=== PATIENT | female | born 1980 | race Caucasian/White ===

== ENCOUNTER → 2020-03-12 08:56 | Outpatient (CLI) | payer OTHER, SELFPAY ==
[2020-03-13 09:37] LABS: COVID19 Sendout Not Detected (Not Detect)
== END ==
PROVIDERS: PCP Physician Assistant Medical; Visit Provider Student in an Organized Health Care Education/Training Program
DX: Z01.812 Encounter for preprocedural laboratory examination (principal)
CPT/HCPCS: 87635

== ENCOUNTER → 2020-06-28 10:38 | Outpatient (CLI) | payer OTHER, SELFPAY ==
[2020-06-29 01:50] LABS: COVID19 Sendout Not Detected (Not Detect)
== END ==
PROVIDERS: PCP Physician Assistant Medical; Visit Provider Physician Assistant
DX: Z11.59 Encounter for screening for other viral diseases (principal); J02.9 Acute pharyngitis, unspecified
CPT/HCPCS: 87070; 87077; 87147; 87635

== ENCOUNTER 2020-08-25 22:13 | Emergency (ER) | payer OTHER, SELFPAY ==
[2020-08-25 22:23] VITALS: BP 164/77; PULSE 100; RESP 16; TEMP 37.1; O2SAT 96; BMI 37.8
[2020-08-25 22:24] VITALS: PULSE 86; O2SAT 99
[2020-08-25 22:30] VITALS: BP 147/69; PULSE 79; O2SAT 98
[2020-08-25 22:39] VITALS: BP 138/65; PULSE 76; O2SAT 99
[2020-08-25 22:40] LABS: Add Manual Diff / Slide Review NO; Basophils Absolute Auto 0 /uL (0-100); Basophils Percent Auto 0.3 % (0-2); Eosinophils Absolute Auto 200 /uL (0-450); Hematocrit 39.9 % (36-46); Hemoglobin 13.2 g/dL (12.0-16.0); Lymphocytes Absolute Auto 2300 /uL (1100-4500); Mean Corpuscular HGB Conc 33.2 % (30-36); Mean Corpuscular Hemoglobin 27.5 PG (26-34); Monocytes Absolute Auto 400 /uL (0-900); Neutrophils Absolute Auto 5200 /uL (1500-7000); Neutrophils Percent Auto 64.7 % (50-75); Platelet Count 260 X10^3/uL (150-400); Red Cell Distribution Width 13.8 % (11.6-14.8)
[2020-08-25 22:42] LABS: Prothrombin Time 11.3 SECONDS (10.1-12.7)
[2020-08-25 22:45] LABS: PTT Partial Thromboplastin Tim 31 SECONDS (26.4-36.2)
[2020-08-25 22:46] LABS: Alanine Aminotransferase 15 IU/L (<35); Albumin 4.2 g/dL (3.5-5.0); Albumin Globulin Ratio 1.3 (1.0-2.8); Alkaline Phosphatase 70 U/L (38-126); Aspartate Aminotransferase 17 IU/L (14-36); BUN Creatinine Ratio 17.8 (6-22); Bilirubin Total 0.3 mg/dL (0.2-1.3); Blood Urea Nitrogen 13 mg/dL (7-17); Calcium 8.7 mg/dL (8.4-10.2); Carbon Dioxide 32 mmol/L (22-32); Chloride 101 mmol/L (98-107); Estimated Glomerular Filt Rate > 60.0 mL/min (>60); Globulin 3.3 g/dL (1.7-4.1); Glucose 121 mg/dL (70-100); HEMOLYSIS < 15 (0-50); Lipase 151 U/L (23-300); Potassium 3.5 mmol/L (3.4-5.1); Sodium 137 mmol/L (137-145); Total Protein 7.5 g/dL (6.3-8.2)
[2020-08-25 22:54] LABS: Pregnancy Test Serum,Qual Negative (Negative)
--- NOTE | 2020-08-25 22:59 | DI.CT.S_ITS ---
PROCEDURE: CT ABDOMEN PELVIS W CON INDICATIONS: rlq pain TECHNIQUE: After the administration of intravenous contrast, 5 mm thick sections acquired from the diaphragm to the symphysis. 5 mm coronal and sagittal reformats were acquired. For radiation dose reduction, the following was used: automated exposure control, adjustment of mA and/or kV according to patient size. COMPARISON: [facility], [place], OB COMPLETE 14WKS OR MORE, 03/15/2015, 16:15. [facility], [place], OB COMPLETE LESS THAN 14 WKS, 01/27/2017, 13:10. [facility], [place], OB COMPLETE LESS THAN 14 WKS, 03/02/2017, 15:56. [facility], [place], OB COMPLETE 14WKS OR MORE, 05/08/2017, 8:16. FINDINGS: Image quality: Excellent. ABDOMEN: Lung bases: A subtle 4 mm pulmonary nodule is present adjacent to the cardiac margin at the lingular base (series 3/image 1). Lung bases are otherwise clear. Heart size is normal. Solid organs: Liver is normal in size and enhancement. Gallbladder is unremarkable . Biliary system is non dilated. Pancreas enhances normally. Spleen is normal in size and enhancement. No adrenal nodules. Kidneys demonstrate normal size and enhancement, without hydronephrosis. A nonobstructing 4 mm calculus is present at the lower pole of the right kidney. Peritoneum and bowel: Bowel loops demonstrate normal wall thickness and caliber. The appendix is thin walled. No free fluid or air. Nodes and vessels: No retroperitoneal or mesenteric adenopathy by size criteria. Aorta and inferior vena cava are normal in size. Miscellaneous: No ventral hernias. PELVIS: Genitourinary: Bladder wall thickness is normal. The uterus and the left ovary have a normal appearance. There is a 3.6 x 2.7 cm right ovarian mass which contains a 1.2 cm region of macroscopic fat. Additionally, a punctate calcification is noted along the anterior aspect of this ovarian. Miscellaneous: No inguinal hernias or adenopathy. Bones: No suspicious bony lesions. No vertebral body compression fractures. IMPRESSION: 1. No acute intra-abdominal findings. Normal appendix. 2. Findings suspicious for a right ovarian dermoid. Pelvic ultrasound could be used to further characterize this finding. Of note, there are multiple prior obstetric ultrasounds documented; however these do not appear to contain images of the ovaries for comparison. 3. Nonobstructive right nephrolithiasis. These findings are concordant with the overnight interpretation. Dictated by: Stacey Fung M.D. on 08/26/2020 at 7:36 Approved by: Stacey Fung M.D. on 08/26/2020 at 7:42
[2020-08-25 23:00] VITALS: BP 143/77; PULSE 72; RESP 22; O2SAT 99
--- NOTE | 2020-08-25 23:09 | ED_ITS ---
HPI - Abdominal Pain General Chief Complaint: Abdominal Pain Stated Complaint: abdominal pain Time Seen by Provider: 08/25/20 22:36 Source: patient and family Mode of arrival: Ambulatory Limitations: no limitations and language barrier History of Present Illness HPI narrative: Patient is a 40-year-old female who presents with right lower quadrant pain which started suddenly after she was trying have a bowel movement. She was feeling well earlier in the day no fever or pain. The she then felt immediate right lower quadrant pain after trying to have bowel movement and she is also having right flank pain as well. As she is noted to have some blood urine 3 no prior history of kidney stone. She denies any fever chills or nausea. She took Tylenol prior to arrival and has not helped with the pain. She says she takes Tylenol every night before bed for the arthritis in her back MD complaint: abdominal pain and flank pain Onset (ago): hour(s) Pain Consistency: constant Location: RLQ Severity: moderate Quality: cramping and stabbing Radiation: none Migration to: no migration Relieving factors: nothing Exacerbating factors: nothing Related Data Home Medications Medication Instructions Recorded Confirmed sertraline 100 mg tablet 100 mg PO DAILY 06/28/20 06/28/20 Allergies Allergy/AdvReac Type Severity Reaction Status Date / Time naproxen Allergy Mild VOMITING, Verified 06/28/20 10:17 PATIENT STATES SHE CAN TAKE IBUPROFEN Review of Systems Review of Systems Narrative: GENERAL: Denies chills, fatigue, malaise, fever, sweats, travel HEENT: Denies sinus pain, ear pain, sore throat, difficulty swallowing, neck pain RESPIRATORY: Denies dyspnea, cough, wheezing, hemoptysis, sputum. CARDIOVASCULAR: Denies chest pain, palpitations, orthopnea, edema GASTROINTESTINAL: See HPI : Denies dysuria, frequency, incontinence, hematuria, urinary retention, flank pain. MUSCULOSKELETAL: Denies weakness, joint pain, or bony pain SKIN: No rash, no erythema, no pruritus NEUROLOGIC: Denies weakness, dizziness, headache, numbness, change in speech, co nfusion PSYCHIATRIC: No concerning psychosocial issues. 12 point review of systems is negative except for those stated above and HPI Patient History Social History Smoking Status: Never smoker Smoking Status: Never smoker Substance Use Type: does not use Exam Initial Vital Signs Initial Vital Signs: Vital Signs Temperature 98.7 F 08/25/20 22:23 Pulse Rate 100 H 08/25/20 22:23 Respiratory Rate 16 08/25/20 22:23 Blood Pressure 164/77 H 08/25/20 22:23 Pulse Oximetry 96 08/25/20 22:23 GENERAL: Well-appearing, well-nourished and in no acute distress. HEENT: Head atraumatic,EOMI, pupils reactive, face symmetric, moist mucous membranes CARDIOVASCULAR: Regular rate and rhythm without murmurs, rubs or gallops. RESPIRATORY: Breath sounds equal bilaterally, no wheezes rales or rhonchi. ABDOMEN: Soft, mild right lower quadrant pain : Mild right flank pain no guarding no rebound EXTREMITIES: Normal range of motion, no clubbing or edema. Neurovascularly intact NEUROLOGICAL: Alert and oriented x4.Normal gait and speech. SKIN: Warm, dry, no laceration, no petechiae, no rashes or lesions. Course Orders Ordered: ED Orders 08/25/20 22:30 Complete Blood Count AUTO DIFF Stat Comprehensive Metabolic Panel Stat Lipase Stat Partial Thromboplastin Time Stat Test Serum,Qual Stat Prothrombin Time INR Stat 08/25/20 22:59 CT abdomen pelvis w con Stat Discontinued Medications Acetaminophen (Acetaminophen 325 Mg Tablet) 975 mg PO NOW ONE Stop: 08/26/20 00:23 Last Admin: 08/26/20 00:28 Dose: 975 mg Documented by: CHERRY Vital Signs Vital signs: Vital Signs - 8 hr 08/25/20 22:23 08/25/20 22:24 08/25/20 22:30 Temperature 98.7 F Pulse Rate 100 H 86 79 Respiratory Rate 16 Blood Pressure 164/77 H 147/69 H Pulse Oximetry 96 99 98 08/25/20 22:39 08/25/20 23:00 08/25/20 23:30 Temperature Pulse Rate 76 72 67 Respiratory Rate 22 20 Blood Pressure 138/65 143/77 H Pulse Oximetry 99 99 97 08/26/20 00:00 Temperature Pulse Rate 66 Respiratory Rate 19 Blood Pressure 144/78 H Pulse Oximetry 98 MDM - Abdominal Pain Lab Data Result diagrams: 08/25/20 22:30 08/25/20 22:30 Labs: Lab Results 12/26/20 12/26/20 12/26/20 Range/Units 22:30 22:30 22:30 WBC 8.0 (4.5-11.0) X10^3/uL RBC 4.80 (4.0-5.2) X10^6/uL Hgb 13.2 (12.0-16.0) g/dL Hct 39.9 (36-46) % MCV 83.0 (80-100) fL MCH 27.5 (26-34) PG MCHC 33.2 (30-36) % RDW 13.8 (11.6-14.8) % Plt Count 260 (150-400) X10^3/uL Neut % (Auto) 64.7 (50-75) % Lymph % (Auto) 28.0 (25-40) % [place] % (Auto) 5.0 (3-14) % Eos % (Auto) 2.0 (2-4) % Baso % (Auto) 0.3 (0-2) % Neut # (Auto) 5200 (8624-9837) /uL Lymph # (Auto) 2300 (4459-1690) /uL [place] # (Auto) 400 (0-900) /uL Eos # (Auto) 200 (0-450) /uL Baso # (Auto) 0 (0-100) /uL PT 11.3 (10.1-12.7) SECONDS INR 1.0 (0.9-1.3) APTT 31 (26.4-36.2) SECONDS Sodium 137 (137-145) mmol/L Potassium 3.5 (3.4-5.1) mmol/L Chloride 101 (98-107) mmol/L Carbon Dioxide 32 (22-32) mmol/L BUN 13 (7-17) mg/dL Creatinine 0.73 (0.52-1.04) mg/dL Estimated GFR > 60.0 (>60) mL/min BUN/Creatinine Ratio 17.8 (6-22) Glucose 121 H (70-100) mg/dL Calcium 8.7 (8.4-10.2) mg/dL Total Bilirubin 0.3 (0.2-1.3) mg/dL AST 17 (14-36) IU/L ALT 15 (<35) IU/L Alkaline Phosphatase 70 (38-126) U/L Total Protein 7.5 (6.3-8.2) g/dL Albumin 4.2 (3.5-5.0) g/dL Globulin 3.3 (1.7-4.1) g/dL Albumin/Globulin Ratio 1.3 (1.0-2.8) Lipase 151 (23-300) U/L Serum , Qual (Negative) 08/25/20 Range/Units 22:30 WBC (4.5-11.0) X10^3/uL RBC (4.0-5.2) X10^6/uL Hgb (12.0-16.0) g/dL Hct (36-46) % MCV (80-100) fL MCH (26-34) PG MCHC (30-36) % RDW (11.6-14.8) % Plt Count (150-400) X10^3/uL Neut % (Auto) (50-75) % Lymph % (Auto) (25-40) % [place] % (Auto) (3-14) % Eos % (Auto) (2-4) % Baso % (Auto) (0-2) % Neut # (Auto) (3936-0567) /uL Lymph # (Auto) (4890-6855) /uL [place] # (Auto) (0-900) /uL Eos # (Auto) (0-450) /uL Baso # (Auto) (0-100) /uL PT (10.1-12.7) SECONDS INR (0.9-1.3) APTT (26.4-36.2) SECONDS Sodium (137-145) mmol/L Potassium (3.4-5.1) mmol/L Chloride (98-107) mmol/L Carbon Dioxide (22-32) mmol/L BUN (7-17) mg/dL Creatinine (0.52-1.04) mg/dL Estimated GFR (>60) mL/min BUN/Creatinine Ratio (6-22) Glucose (70-100) mg/dL Calcium (8.4-10.2) mg/dL Total Bilirubin (0.2-1.3) mg/dL AST (14-36) IU/L ALT (<35) IU/L Alkaline Phosphatase (38-126) U/L Total Protein (6.3-8.2) g/dL Albumin (3.5-5.0) g/dL Globulin (1.7-4.1) g/dL Albumin/Globulin Ratio (1.0-2.8) Lipase (23-300) U/L Serum , Qual Negative (Negative) Point of care testing: Point of Care Testing Test Results Negative Urine Dip Bedside Urine Glucose Negative Bedside Urine Bilirubin + 1 Bedside Urine Ketone +/- 5 Urine Specific [place] 1.025 Bedside Urine Occult Blood +/- Bedside Urine pH 6.0 Bedside Urine Protein +/- 15 Bedside Urine Urobilinogen - Negative Bedside Urine Nitrite - Negative Bedside Urine Leukocytes - Negative Esterase Imaging Data CT scan - abdomen/pelvis: Radiologist's Impression: Preliminary report 1.4 cm lesion on the right adnexa consistent with dermoid MDM Narrative Medical decision making narrative: Patient started having right-sided pain after straining for a bowel movement. CT does show a dermoid however this is unlikely the cause of her pain. Pain seems to be more musculoskeletal. She is unable to take NSAIDs they cause her vomiting. She takes Tylenol. Tylenol was helping but now seems to have worn off. She does have a primary care provider for she follow up with them in regards to the dermoid. Discharge Plan Departure Patient Disposition: Home Clinical Impression: Dermoid cyst Abdominal wall strain Qualifiers: Encounter type: initial encounter Qualified Code(s): S39.011A - Strain of muscle, fascia and tendon of abdomen, initial encounter Instructions: DI for Abdominal Muscle Strain Activity Restrictions/Additional Instructions: *You have been diagnosed with abdominal wall strain and dermoid cyst on right *What to do: He likely pulled or strained abdominal wall muscle. Recommend heating pack or ice. Please follow-up with your primary care provider in regard to the dermoid cyst found near your right ovary *Continue to take medications as directed Tylenol 1000 mg every 6 hours if needed for pain *Follow up with your primary care provider in 2-3 days *Return to ER if you should have increasing pain, fever, persistent vomiting [or] any new, worsening or concerning symptoms Prescriptions: No Action sertraline 100 mg tablet 100 mg PO DAILY RF: 0 Referrals: Ning Eng PA-C [Primary Care Provider] -
[2020-08-25 23:30] VITALS: PULSE 67; RESP 20; O2SAT 97
[2020-08-26] VITALS: BP 144/78; PULSE 66; RESP 19; O2SAT 98
[2020-08-26] MEDS: ACETAMINOPHEN 325 MG TABLET 975 MG PO (00:28)
== END 2020-08-26 00:36 | disposition home or self-care (01) ==
PROVIDERS: Emergency Provider Emergency Medicine; PCP Physician Assistant Medical
DX: S39.011A Strain of muscle, fascia and tendon of abdomen, initial encounter (principal); D36.9 Benign neoplasm, unspecified site
CPT/HCPCS: 36415; 74177; 80053; 81003; 81025; 83690; 84703; 85025; 85610; 85730; 99283; 99284

== ENCOUNTER → 2020-10-03 11:52 | Outpatient (CLI) | payer OTHER, SELFPAY ==
[2020-10-03 12:21] LABS: COVID19 -Nasal RAPID Negative (Negative)
== END ==
PROVIDERS: PCP Physician Assistant Medical; Visit Provider Specialist
DX: Z01.812 Encounter for preprocedural laboratory examination (principal); Z20.822 Contact with and (suspected) exposure to COVID-19
CPT/HCPCS: 87635

== ENCOUNTER 2020-10-04 10:32 | Day surgery (SDC) | payer OTHER, SELFPAY ==
[2020-10-04] VITALS (11 sets, daily range): BP systolic 113–153; BP diastolic 51–92; PULSE 60–89; RESP 12–18; TEMP 36.6–37; O2SAT 83–100; BMI 39.4
--- NOTE | 2020-10-04 | PATH_ITS ---
[facility] Accession Number: [id number] . 01 Material submitted: . OVARY/FALLOPIAN TUBE - RIGHT OVARY AND FALLOPIAN TUBE . 02 Diagnosis: Right Ovary and Fallopian Tube, Right Salpingo-oophorectomy: Benign ovarian mature cystic teratoma / benign dermoid cyst involves the right ovary and is adherent to the fallopian tube. Disrupted measurement is approximately 2 cm; tissue disruption precludes definite measurement of the dermoid cyst. Background of ovarian stromal thecosis and scattered, benign cortical cysts. Fallopian tube demonstrates adhesions to ovary associated with the dermoid cyst; negative for epithelial atypia or malignancy. [facility] 10/12/2020 1423 Local . 02 Electronically signed: . Juliana Hart MD, Pathologist NPI- [id number] . 01 Gross description: . The specimen is received in formalin, labeled right ovary and fallopian tube, and consists of a 3.2 x 2.5 x 2.0 cm ovary with a armstrong-pink smooth to cerebriform external surface and a 2.0 x 1.5 cm area of disruption. Sectioning reveals a armstrong ovarian stroma with multiple armstrong-pink, smooth-walled, serous-filled cysts ranging from 0.1 cm to 0.6 cm. No papillary excrescences are identified. The attached fallopian tube measures 3.2 cm in length by 0.9 cm in diameter and displays a pink-purple, smooth serosa. Sectioning reveals a armstrong mucosa and stellate lumen measuring 0.2 cm in diameter. Also received are multiple armstrong to armstrong-pink fragments of soft tissue measuring 3.0 x 2.5 x 1.0 cm in aggregate. Glove Maker sections are submitted. A1-A2: Glove Maker ovary, to include area of disruption. A3: Fallopian tube, outbound sales representative cross-sections, margin (blue), and bisected fimbria. A4: Glove Maker additional tissue fragments. (EA:[id number]) A5-A12: Remainder of ovary. (EA:[id number]) /FRR 10/12/2020 1423 Local . 02 Pathologist provided ICD-10: R10.31, D27.0 . 02 CPT . 690153 Performed at: 01 [facility] [address] [address], [place], [place] [id number] MD Maicol Bey MD Phone: [phone] Performed at: [facility] [address] [address] [place], [place] [id number] MD Sarah Edward MD Phone: [phone]
[2020-10-04] MEDS: LACTATED RINGERS 1,000 ML 100 ML IV (11:30)
--- NOTE | 2020-10-04 12:00 | PM.PREOP ---
Pre-operative Note COVID-19 COVID-19 status: Negative Result date/Date tested (Pos, Neg/Pending): 10/03/20 Interval Note History & Physical reviewed/Exam performed by Physician: Yes Changes to H&P: No
--- NOTE | 2020-10-04 12:29 | SUR.OPER ---
Lithotomy on padded OR bed, head on pillow, arms secured on padded arm boards at <90 degrees abduction. Legs secured in padded yellow fins stirrups.
[2020-10-04] MEDS: BUPIVACAINE 0.5% W/ EPI (PF) 30 ML VIAL INJ (12:36)
[2020-10-04] MEDS: fentaNYL 100 MCG/2 ML INJ IV (13:03)
--- NOTE | 2020-10-04 13:09 | PM.OP.1 ---
Operative Date/Time/Diagnoses Date of procedure: 10/04/20 Time of procedure: 13:09 Pre-op diagnosis: right lower quadrant pain and a right dermoid cyst Post-op diagnosis: same Procedure & Clinicians Procedure: laparoscopic RSO Same procedure as scheduled: Yes Indications: right lower quadrant pain with small right ovarian dermoid Surgeon: Bella Lucio Click Yes if Unassisted: Yes Anesthesia Type: General Operative Notes Findings: slightly enlarged right ovary, no other pathology other than a area of collection of dark at the end of the fallopian tube possible endometriosis Closure Type: primary Specimen(s): other ( right tube and ovary) Estimated Blood Loss (mL): 5 Blood products transfused: none Procedure in detail: Patient was brought to the operating room where she underwent general anesthesia. She was placed in low yellowfin stirrups and prepped and draped in usual sterile fashion. No antibiotics are indicated. Pulsatile stockings were in place and functional. Warming was with blankets. A single-tooth tenaculum was placed on the anterior lip of the cervix and the cervix dilated to #6 Hegar dilator. The Анна uterine manipulator was placed and balloon inflated with 3 mL of air. The area of the incisions were injected with half percent Marcaine with epinephrine. An incision was made in the umbilicus with a scalpel. the incision was carried down to the fascial layer which was incised transversely and held with 0 Vicryl sutures. The perineum was entered bluntly. The Meneses cannulawas placed in the abdomen in tied in place with the prior placed 0 Vicryl suture. 2 5 mm trochars were placed in the right and left lower quadrant under direct visualization after incising the skin. There did not appear to be any damage with placement of the trocars. The right fallopian tube was grasped and using the PK generator the infundibulopelvic ligament was clamped, cut, and ligated. Sequential bites across the broad ligament were performed. The utero-ovarian ligament was cauterized and cut. This allowed the tube and ovary to be freed. The small Endo-Catch bag was placed through the Meneses cannula and the tube and ovary placed in the Endo-Catch bag and brought up to the incision. The tube and ovary removed without spillage of tissue into the abdomen. Adequate hemostasis was noted. The CO2 was allowed to escape from the abdomen. The trochars were removed. The fascial layer of the umbilicus incision was closed with the prior placed 0 Vicryl suture. Skin was closed with 4-0 monocryl. The patient went to recovery room in good condition. Complications: none Post-operative Condition: stable Disposition: same day surgery Plan for aftercare: routine post laparoscopy
[2020-10-04] MEDS: OXYCODONE/ACETAMINOPHEN 5/325 TABLET 1 TAB PO ×2 (13:24→13:49)
== END 2020-10-04 14:12 | disposition home or self-care (01) ==
PROVIDERS: PCP Physician Assistant Medical; Referring Provider Specialist; Visit Provider Specialist
PROC: (CPT 58661; principal; 2020-10-04 11:45)
DX: D27.0 Benign neoplasm of right ovary (principal); N73.6 Female pelvic peritoneal adhesions (postinfective)
CPT/HCPCS: 58661; 81025; J1100; J1885; J2405; J2704; J3010

== ENCOUNTER 2021-01-20 12:53 | Emergency (ER) | payer OTHER, SELFPAY ==
[2021-01-20 13:10] VITALS: BP 155/67; PULSE 74; RESP 16; TEMP 36.9; O2SAT 100; BMI 36.8
--- NOTE | 2021-01-20 13:21 | ED_ITS ---
HPI - Abdominal Pain General Chief Complaint: Abdominal Pain Stated Complaint: LOWER ABDOMINAL PAIN/RT SIDE Time Seen by Provider: 01/20/21 13:13 Source: patient and old records reviewed Mode of arrival: Ambulatory Limitations: no limitations History of Present Illness HPI narrative: This is a 40-year-old female comes emergency department complaint of right lower abdominal pain starting last day. Patient eyes any fevers. She has had nausea. She states history of her pain is right lower quadrant although she has some very mild right flank pain. Patient states she has had diarrhea several times in the last 12 hours. She has not had any melena or hematochezia that she has noted. She just started menstruation in the last day which is on a inappropriate scheduled for her. She denies any dysuria, frequency, hesitancy or urgency. Patient states she a history of right oophorectomy and salpingectomy for ovarian cyst. She denies any other abdominal surgeries. She is on sertraline daily for medication. She states she is allergic to naproxen. She defers any pain medication at this time although she states her pain is 7/10 but would like some medication for nausea. Related Data Home Medications Medication Instructions Recorded Confirmed sertraline 100 mg tablet 100 mg PO DAILY 06/28/20 09/24/20 diphenhydramine-acetaminophen 2 tab PO BEDTIME PRN 10/04/20 10/04/20 [Tylenol PM Extra Strength] cephalexin 500 mg capsule 500 mg PO QID 10/12/20 10/12/20 Previous Rx's Medication Instructions Recorded oxycodone-acetaminophen 1 tab PO PACUNOW PRN #30 tab 10/04/20 cephalexin 500 mg capsule 500 mg PO QID #40 cap 10/11/20 ondansetron HCl [Zofran] 4 mg PO Q6H PRN #7 tab 01/20/21 Allergies Allergy/AdvReac Type Severity Reaction Status Date / Time naproxen Allergy Mild VOMITING, Verified 01/20/21 13:13 PATIENT STATES SHE CAN TAKE IBUPROFEN Review of Systems Review of Systems ROS Unobtainable: All systems reviewed & are unremarkable except as noted in HPI and below Patient History Medical History Depression (~1998) Human papilloma virus (~2000) Surgical History Anesthesia History of tubal ligation (~10/2017) Family History Father Diabetes mellitus Hypertension Grandmother Liver cancer Grandfather Diabetes mellitus Grandmother Diabetes mellitus Social History household members: spouse Smoking Status: Never smoker alcohol intake: current Smoking Status: Never smoker alcohol intake frequency: a few times a month Substance Use Type: does not use Exam Narrative Exam Narrative: GENERAL: Alert and oriented x three, well-nourished female in mild distress. HEENT: Head normocephalic, atraumatic, EOMI, pupils reactive, face symmetric, moist mucous membranes NECK: Supple, full range of motion CARDIOVASCULAR: Regular rate and rhythm without murmurs, rubs or gallops. RESPIRATORY: Breath sounds equal bilaterally, no wheezes rales or rhonchi. ABDOMEN: Soft, to moderate right lower quadrant tenderness. Patient also has a little bit of right upper quadrant tenderness although less so in the right lo wer. Normoactive bowel sounds all 4 quadrants. No guarding, positive for rebound at right lower quadrant, no rigidity, no mass, no inguinal hernia, mass or tenderness noted. : No CVA tenderness EXTREMITIES: Normal range of motion, no clubbing or edema. Neurovascularly intact NEUROLOGICAL: Cranial nerves II through XII grossly intact. Moving all extremities SKIN: Warm, dry, no petechiae, no rashes or lesions. Initial Vital Signs Initial Vital Signs: Vital Signs Temperature 98.5 F 01/20/21 13:10 Pulse Rate 74 01/20/21 13:10 Respiratory Rate 16 01/20/21 13:10 Blood Pressure 155/67 H 01/20/21 13:10 Pulse Oximetry 100 01/20/21 13:10 Course Orders Ordered: ED Orders 01/20/21 13:45 Complete Blood Count AUTO DIFF Stat Comprehensive Metabolic Panel Stat Lipase Stat Partial Thromboplastin Time Stat Prothrombin Time INR Stat 01/20/21 13:50 CT abdomen pelvis w con Stat Discontinued Medications Ondansetron HCl (Ondansetron 4 Mg/2 Ml Inj) 4 mg IV NOW ONE Stop: 01/20/21 13:53 Last Admin: 01/20/21 13:58 Dose: 4 mg Documented by: [email or web address] NENA Reevaluation(s) Reevaluation #1: patient still has some nausea, reviewed imaging and labs. Plan for watchful waiting and patient is to return if worsening symptoms. Time: 15:14 Vital Signs Vital signs: Vital Signs - 8 hr 01/20/21 13:10 01/20/21 14:30 Temperature 98.5 F Pulse Rate 74 91 H Respiratory Rate 16 16 Blood Pressure 155/67 H 117/55 L Pulse Oximetry 100 100 MDM - Abdominal Pain Lab Data Attestation: I reviewed the patient's lab results. Result diagrams: 01/20/21 13:45 01/20/21 13:45 Labs: Lab Results 01/20/21 01/20/21 01/20/21 Range/Units 13:45 13:45 13:45 WBC 6.0 (4.5-11.0) X10^3/uL RBC 4.91 (4.0-5.2) X10^6/uL Hgb 13.7 (12.0-16.0) g/dL Hct 40.8 (36-46) % MCV 83.2 (80-100) fL MCH 27.8 (26-34) PG MCHC 33.5 (30-36) % RDW 13.9 (11.6-14.8) % Plt Count 288 (150-400) X10^3/uL Neut % (Auto) 70.1 (50-75) % Lymph % (Auto) 22.7 L (25-40) % Otero % (Auto) 4.8 (3-14) % Eos % (Auto) 1.9 L (2-4) % Baso % (Auto) 0.5 (0-2) % Neut # (Auto) 4200 (7467-0144) /uL Lymph # (Auto) 1400 (0100-9144) /uL Otero # (Auto) 300 (0-900) /uL Eos # (Auto) 100 (0-450) /uL Baso # (Auto) 0 (0-100) /uL PT 11.6 (10.1-12.7) SECONDS INR 1.0 (0.9-1.3) APTT 34 (26.4-36.2) SECONDS Sodium 138 (137-145) mmol/L Potassium 3.8 (3.4-5.1) mmol/L Chloride 102 (98-107) mmol/L Carbon Dioxide 28 (22-32) mmol/L BUN 10 (7-17) mg/dL Creatinine 0.64 (0.52-1.04) mg/dL Estimated GFR > 60.0 (>60) mL/min BUN/Creatinine Ratio 15.6 (6-22) Glucose 101 H (70-100) mg/dL Calcium 9.0 (8.4-10.2) mg/dL Total Bilirubin 0.4 (0.2-1.3) mg/dL AST 22 (14-36) IU/L ALT 16 (<35) IU/L Alkaline Phosphatase 93 (38-126) U/L Total Protein 8.1 (6.3-8.2) g/dL Albumin 4.5 (3.5-5.0) g/dL Globulin 3.6 (1.7-4.1) g/dL Albumin/Globulin Ratio 1.3 (1.0-2.8) Lipase 90 (23-300) U/L Point of care testing: Point of Care Testing Test Results Negative Urine Dip Bedside Urine Glucose Negative Bedside Urine Bilirubin - Negative Bedside Urine Ketone - Negative Urine Specific [place] 1.020 Bedside Urine Occult Blood +++ Bedside Urine pH 6.5 Bedside Urine Protein - Negative Bedside Urine Urobilinogen - Negative Bedside Urine Nitrite - Negative Bedside Urine Leukocytes - Negative Esterase Imaging Data CT scan - abdomen/pelvis: Radiologist's Impression: [address] [id number] Scan ReportSigned Patient: Pati Mercado [facility]#: [id number]: 1980Acct:[id number]/Sex: 40 / FDate of Service: 01/20/21Loc: EDAccession Number: [id number] Procedure: CT abdomen pelvis w con Ordering Provider: Ana Wooten D.O. PROCEDURE: CT ABDOMEN PELVIS W CON INDICATIONS: RLQ, hx oophorectomy and salpingectomy on R TECHNIQUE: After the administration of intravenous contrast, 5 mm thick sections acquired from the diaphragm to the symphysis. 5 mm coronal and sagittal reformats were acquired. For radiation dose reduction, the following was used: automated exposure control, adjustment of mA and/or kV according to patient size. COMPARISON: [facility], CT, CT ABDOMEN PELVIS W CON, 08/25/2020, 23:11. FINDINGS: Image quality: Excellent. ABDOMEN: Lung bases: Lung bases are clear. Heart size is normal. Solid organs: Liver is normal in size and enhancement. Gallbladder is unremarkable. Biliary system is non dilated. Pancreas enhances normally. Spleen is normal in size and enhancement. No adrenal nodules. Kidneys demonstrate normal size and enhancement, without hydronephrosis. There is a small nonobstructing right lower pole renal stone. No hydronephrosis. Peritoneum and bowel: Bowel loops demonstrate normal wall thickness and caliber. No free fluid or air. A normal appendix is identified. Very mild sigmoid diverticulosis. Nodes and vessels: No retroperitoneal or mesenteric adenopathy by size criteria. Aorta and inferior vena cava are normal in size. Miscellaneous: No ventral hernias. PELVIS: Genitourinary: Bladder wall thickness is normal. Miscellaneous: No inguinal hernias or adenopathy. Interval right oophorectomy and removal of presumed right adnexal dermoid. Bones: No suspicious bony lesions. No vertebral body compression fractures. IMPRESSION: 1. Normal appendix. 2. No evidence of acute abdominal process. Dictated by: Nolberto Espinoza M.D. on 01/20/2021 at 14:17 Approved by: Nolberto Espinoza M.D. on 01/20/2021 at 14:22 MDM Narrative Medical decision making narrative: This is a 40-year-old female with right Lower abdominal pain. CT imaging does not show any signs of appendicitis. Appendix was imaged. Patient has hematuria but she just started her menses. test is negative. Only other lab abnormality with a glucose of 101. She does not have any other infectious symptoms. Pole renal stone but no stones in the ureter. She has had a right oophorectomy. On recheck reviewed patient's labs and findings today. Discussed that she may be having some right-sided cramping secondary to menstruation but to continue with watchful waiting. She would like a prescription for antinausea medicine which I think is appropriate. She plan to continue ibuprofen and/or Tylenol as needed for discomfort and to return if any red flag symptoms. Discharge Plan Departure Patient Disposition: Home Clinical Impression: Right sided abdominal pain Instructions: DI for Abdominal Pain-Adult Activity Restrictions/Additional Instructions: Follow up with your physician for recheck if your symptoms are not resolving over the next day or so. You may take Tylenol up to a 1000 mg every 8 hours as needed for pain and/or may take ibuprofen up to 800 mg every 8 hours if needed. You may take Zofran 1 tablet every 6 hours needed for nausea. Prescription sent to [facility] in [place] Please return for fevers, rapidly worsening symptoms, lightheadedness or passing out, persistent vomiting, black or bloody stools or other new or concerning symptoms. Prescriptions: New ondansetron HCl [Zofran] 4 mg tablet 4 mg PO Q6H PRN (Reason: nausea and vomiting) Qty: 7 RF: 0 No Action sertraline 100 mg tablet 100 mg PO DAILY RF: 0 cephalexin [Keflex] 500 mg capsule 500 mg PO QID Qty: 40 RF: 0 cephalexin [Keflex] 500 mg capsule 500 mg PO QID RF: 0 diphenhydramine-acetaminophen [Tylenol PM Extra Strength] 25-500 mg Tablet 2 tab PO BEDTIME PRN (Reason: Insomnia) RF: 0 oxycodone-acetaminophen 5-325 mg Tablet 1 tab PO PACUNOW PRN (Reason: Mild or Moderate Pain) Qty: 30 RF: 0 Referrals: Ning Eng PA-C [Primary Care Provider] -
--- NOTE | 2021-01-20 13:50 | DI.CT.S_ITS ---
PROCEDURE: CT ABDOMEN PELVIS W CON INDICATIONS: RLQ, hx oophorectomy and salpingectomy on R TECHNIQUE: After the administration of intravenous contrast, 5 mm thick sections acquired from the diaphragm to the symphysis. 5 mm coronal and sagittal reformats were acquired. For radiation dose reduction, the following was used: automated exposure control, adjustment of mA and/or kV according to patient size. COMPARISON: [facility], CT, CT ABDOMEN PELVIS W CON, 08/25/2020, 23:11. FINDINGS: Image quality: Excellent. ABDOMEN: Lung bases: Lung bases are clear. Heart size is normal. Solid organs: Liver is normal in size and enhancement. Gallbladder is unremarkable. Biliary system is non dilated. Pancreas enhances normally. Spleen is normal in size and enhancement. No adrenal nodules. Kidneys demonstrate normal size and enhancement, without hydronephrosis. There is a small nonobstructing right lower pole renal stone. No hydronephrosis. Peritoneum and bowel: Bowel loops demonstrate normal wall thickness and caliber. No free fluid or air. A normal appendix is identified. Very mild sigmoid diverticulosis. Nodes and vessels: No retroperitoneal or mesenteric adenopathy by size criteria. Aorta and inferior vena cava are normal in size. Miscellaneous: No ventral hernias. PELVIS: Genitourinary: Bladder wall thickness is normal. Miscellaneous: No inguinal hernias or adenopathy. Interval right oophorectomy and removal of presumed right adnexal dermoid. Bones: No suspicious bony lesions. No vertebral body compression fractures. IMPRESSION: 1. Normal appendix. 2. No evidence of acute abdominal process. Dictated by: Nolberto Espinoza M.D. on 01/20/2021 at 14:17 Approved by: Nolberto Espinoza M.D. on 01/20/2021 at 14:22
[2021-01-20] MEDS: ONDANSETRON 4 MG/2 ML INJ IV (13:58)
[2021-01-20 13:59] LABS: Add Manual Diff / Slide Review NO; Basophils Absolute Auto 0 /uL (0-100); Basophils Percent Auto 0.5 % (0-2); Eosinophils Absolute Auto 100 /uL (0-450); Eosinophils Percent Auto 1.9 % (2-4); Hematocrit 40.8 % (36-46); Hemoglobin 13.7 g/dL (12.0-16.0); Lymphocytes Absolute Auto 1400 /uL (1100-4500); Lymphocytes Percent Auto 22.7 % (25-40); Mean Corpuscular HGB Conc 33.5 % (30-36); Mean Corpuscular Hemoglobin 27.8 PG (26-34); Mean Corpuscular Volume 83.2 fL (80-100); Monocytes Absolute Auto 300 /uL (0-900); Monocytes Percent Auto 4.8 % (3-14); Neutrophils Absolute Auto 4200 /uL (1500-7000); Neutrophils Percent Auto 70.1 % (50-75); Platelet Count 288 X10^3/uL (150-400); Red Blood Cell Count 4.91 X10^6/uL (4.0-5.2); Red Cell Distribution Width 13.9 % (11.6-14.8)
[2021-01-20 14:04] LABS: Prothrombin Time 11.6 SECONDS (10.1-12.7)
[2021-01-20 14:06] LABS: PTT Partial Thromboplastin Tim 34 SECONDS (26.4-36.2)
[2021-01-20 14:09] LABS: Alanine Aminotransferase 16 IU/L (<35); Albumin 4.5 g/dL (3.5-5.0); Albumin Globulin Ratio 1.3 (1.0-2.8); Alkaline Phosphatase 93 U/L (38-126); Aspartate Aminotransferase 22 IU/L (14-36); BUN Creatinine Ratio 15.6 (6-22); Bilirubin Total 0.4 mg/dL (0.2-1.3); Blood Urea Nitrogen 10 mg/dL (7-17); Carbon Dioxide 28 mmol/L (22-32); Chloride 102 mmol/L (98-107); Estimated Glomerular Filt Rate > 60.0 mL/min (>60); Globulin 3.6 g/dL (1.7-4.1); Glucose 101 mg/dL (70-100); HEMOLYSIS < 15 (0-50); Lipase 90 U/L (23-300); Potassium 3.8 mmol/L (3.4-5.1); Sodium 138 mmol/L (137-145); Total Protein 8.1 g/dL (6.3-8.2)
[2021-01-20 14:30] VITALS: BP 117/55; PULSE 91; RESP 16; O2SAT 100
== END 2021-01-20 15:25 | disposition home or self-care (01) ==
PROVIDERS: Emergency Provider Emergency Medicine; PCP Physician Assistant Medical
DX: R10.31 Right lower quadrant pain (principal); R11.0 Nausea; R19.7 Diarrhea, unspecified
CPT/HCPCS: 36415; 74177; 80053; 81003; 81025; 83690; 85025; 85610; 85730; 96374; 99284; J2405; Q9967

== ENCOUNTER 2022-01-29 14:39 | Emergency (ER) | payer OTHER, SELFPAY ==
[2022-01-29] VITALS (9 sets, daily range): BP systolic 140–192; BP diastolic 68–84; PULSE 61–92; RESP 18; TEMP 36.6; O2SAT 97–100; BMI 37.0
[2022-01-29 18:18] LABS: Bacteria Urine Occasional (0-1); RBC Urine 0-1/HPF (0-5/HPF); Squamous Epithelial Cell Urine 0-1 /HPF (0-5/HPF); WBC Urine 0-1/HPF (0-5/HPF)
[2022-01-29 18:19] LABS: Culture Indicated Urine Cult Not Indicated
--- NOTE | 2022-01-29 18:52 | DI.CT.S_ITS ---
PROCEDURE: CT ABDOMEN PELVIS W CON INDICATIONS: sharp rt pelvic pain, no rt ovary or fallopian tube TECHNIQUE: After the administration of intravenous contrast, axial sections acquired from the lung bases to the pubic symphysis. Coronal and sagittal reformats were performed. For radiation dose reduction, the following was used: automated exposure control, adjustment of mA and/or kV according to patient size. COMPARISON: [facility], CT, CT ABDOMEN PELVIS W CON, 01/20/2021, 14:09. [facility], CT, CT ABDOMEN PELVIS W CON, 08/25/2020, 23:11. FINDINGS: Image quality: Excellent. Lung bases: Minimal bibasilar atelectasis Heart: No significant findings. ABDOMEN: Liver: Unremarkable Gallbladder: Unremarkable. Biliary ducts: Unremarkable. Pancreas: Unremarkable. Spleen: Unremarkable. Adrenal Glands: Unremarkable. Kidneys and Ureters: Redemonstration of 3 mm nonobstructing inferior pole right nephrolith. Otherwise, no perinephric stranding. No hydronephrosis. Bilateral ureters are normal in course and caliber. Stomach and Bowel: Stomach, small bowel loops, and colon are unremarkable. Normal appendix. Peritoneum: No abnormal intraperitoneal fluid. No free air. Ventral Wall: No hernias. Abdominal Nodes: No retroperitoneal or mesenteric adenopathy by size criteria. Vessels: Aorta and inferior vena cava are normal in size. PELVIS: Pelvic Organs: Unremarkable. Bladder: Unremarkable. Pelvic Nodes: No enlarged lymph nodes. Miscellaneous: No hernias are seen. Bones: Unremarkable. IMPRESSION: CT abdomen and pelvis without acute abnormalities. Normal appendix. 3 mm nonobstructing right nephrolith. No evidence for obstructive uropathy. Dictated by: Giovanny Galvan M.D. on 01/29/2022 at 19:43 Approved by: Giovanny Galvan M.D. on 01/29/2022 at 19:47
--- NOTE | 2022-01-29 18:53 | ED_ITS ---
HPI - Abdominal Pain <Sarah Frost QUALITY PROJECT MANAGER - Last Filed: 01/29/22 20:58> General Chief Complaint: Abdominal Pain Stated Complaint: Rt. lower abdomen pain Time Seen by Provider: 01/29/22 18:38 Source: patient Mode of arrival: EMS History of Present Illness HPI narrative: This is a pleasant 1-year-old female with history six vaginal deliveries, right oophorectomy and salpingectomy for an ovarian cyst who still has a uterus. She finished her menstruation yesterday, states that her menses have been regular. She denies any dysuria, frequency, hesitancy, or urgency. 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 She states that she took Tylenol this morning for headache, states that they have a puppy at home and she has been up frequently taking care of him. She endorses nausea without vomiting, sharp bright pelvic pain, denies any mass or lump, denies any abnormal vaginal discharge, dysuria, flank pain, other abdominal pain, back pain, chest pain, or any difficulty breathing. She is allergic to naproxen, states that she is still mildly nauseated. Related Data Home Medications Medication Instructions Recorded Confirmed diphenhydramine 25 2 tab PO BEDTIME PRN 10/04/20 10/04/20 mg-acetaminophen 500 mg tablet (Tylenol PM Extra Strength) fluoxetine 40 mg capsule 40 mg PO DAILY 12/02/21 12/02/21 levothyroxine 50 mcg capsule 50 mcg PO DAILY 12/02/21 12/02/21 Previous Rx's Medication Instructions Recorded norethindrone acetate 1 mg-ethinyl 1 tab PO DAILY #21 tab 12/02/21 estradiol 20 mcg tablet hydrocodone 5 mg-acetaminophen 325 1 tab PO BID PRN #14 tab 01/29/22 mg tablet ondansetron 4 mg disintegrating 4 mg PO Q8H PRN #10 tab 01/29/22 tablet tamsulosin 0.4 mg capsule 0.4 mg PO DAILY #10 cap 01/29/22 Allergies Allergy/AdvReac Type Severity Reaction Status Date / Time naproxen Allergy Mild VOMITING, Verified 12/02/21 08:51 PATIENT STATES SHE CAN TAKE IBUPROFEN Review of Systems <FELICIA Choudhury - Last Filed: 01/29/22 20:58> Review of Systems Narrative: General: denies fever, chills, malaise, sweats, fatigue Head/Neck: denies headache, neck pain, dizziness Eyes: denies visual changes, eye pain Cardio: denies chest pain, palpitations, edema Respiratory: denies dyspnea, cough, orthopnea GI: Endorses right lower pelvic pain with nausea denies any other abdominal pain, vomiting, or diarrhea : denies dysuria, hematuria, urinary retention, frequency or incontinence, states that she got up one time to void last night, has not had any urinary symptoms MSK: denies joint pain, muscle weakness Skin: denies rash, itching, skin lesions or other Neuro: denies numbness, tingling Patient History <FELICIA Choudhury - Last Filed: 01/29/22 20:58> Medical History Depression (~1998) Human papilloma virus (~2000) Surgical History Anesthesia History of tubal ligation (~10/2017) Family History Father Diabetes mellitus Hypertension Grandmother Liver cancer Grandfather Diabetes mellitus Grandmother Diabetes mellitus Social History household members: spouse Smoking Status: Never smoker alcohol intake: current Smoking Status: Never smoker alcohol intake frequency: holidays/special occasions only Substance Use Type: does not use Exam <FELICIA Choudhury - Last Filed: 01/29/22 20:58> Narrative Exam Narrative: Independently reviewed vitals signs and nursing notes. General: cooperative, comfortable, in no acute distress, well groomed Head: atraumatic, symmetrical facial expressions Neck: supple Eyes: equal round and reactive, EOMI, conjunctiva normal Nose: nares patent, no rhinorrhea Mouth/Throat: moist mucus membranes Cardiovascular: regular rate and rhythm, no peripheral edema, warm extremities Respiratory: normal effort, able to speak in complete sentences, no audible wheezing, stridor, or rales. No retractions or tachypnea. GI: abdomen soft, nontender to palpation, nondistended, no masses, no exquisite tenderness with exam, without guarding or rebound. Mild tenderness to right groin with palpation, no masses palpable, no inguinal hernias palpable, no lymphadenopathy that I can appreciate on exam. MSK: moves all extremities, neurovascularly intact, no weakness, normal tone Skin: brisk capillary refill, no rash, no erythema Neuro: normal speech and cognition, A&O x3 Psych: mental status is grossly normal, congruent mood, normal affect, pleasant and cooperative Initial Vital Signs Initial Vital Signs: Vital Signs Temperature 97.9 F 01/29/22 15:18 Pulse Rate 74 01/29/22 15:18 Respiratory Rate 18 01/29/22 15:18 Blood Pressure 192/84 H 01/29/22 15:18 Pulse Oximetry 100 01/29/22 15:18 <Ana Wooten DO - Last Filed: 01/30/22 20:10> Initial Vital Signs Initial Vital Signs: Vital Signs Temperature 97.9 F 01/29/22 15:18 Pulse Rate 74 01/29/22 15:18 Respiratory Rate 18 01/29/22 15:18 Blood Pressure 192/84 H 01/29/22 15:18 Pulse Oximetry 100 01/29/22 15:18 Course <FELICIA Choudhury - Last Filed: 01/29/22 20:58> Orders Ordered: Discontinued Medications Hydrocodone Bitart/Acetaminophen (Hydrocodone/Acet 5/325 Tablet) 1 tab PO NOW ONE Stop: 01/29/22 19:45 Last Admin: 01/29/22 19:53 Dose: 1 tab Documented by: [email or web address] Ketorolac Tromethamine (Ketorolac 30 Mg/Ml Vial) 15 mg IV NOW ONE Stop: 01/29/22 20:08 Last Admin: 01/29/22 20:14 Dose: 15 mg Documented by: [email or web address] Ondansetron HCl (Ondansetron 4 Mg/2 Ml Inj) 4 mg IV NOW ONE Stop: 01/29/22 19:45 Last Admin: 01/29/22 19:53 Dose: 4 mg Documented by: [email or web address] Tamsulosin HCl (Tamsulosin 0.4 Mg Capsule) 0.4 mg PO NOW ONE Stop: 01/29/22 20:08 Last Admin: 01/29/22 20:14 Dose: 0.4 mg Documented by: [email or web address] Vital Signs Vital signs: Vital Signs - 8 hr 01/29/22 15:18 01/29/22 18:36 01/29/22 18:38 Temperature 97.9 F Pulse Rate 74 70 72 Respiratory Rate 18 Blood Pressure 192/84 H 170/74 H Pulse Oximetry 100 99 99 01/29/22 19:00 01/29/22 19:01 01/29/22 19:30 Temperature Pulse Rate 72 72 65 Respiratory Rate Blood Pressure 150/69 H Pulse Oximetry 99 99 98 01/29/22 20:00 01/29/22 20:25 01/29/22 20:27 Temperature Pulse Rate 61 92 H Respiratory Rate 18 Blood Pressure 140/68 140/68 Pulse Oximetry 97 98 <Ana Wooten, - Last Filed: 01/30/22 20:10> Orders Ordered: Discontinued Medications Hydrocodone Bitart/Acetaminophen (Hydrocodone/Acet 5/325 Tablet) 1 tab PO NOW ONE Stop: 01/29/22 19:45 Last Admin: 01/29/22 19:53 Dose: 1 tab Documented by: [email or web address] Ketorolac Tromethamine (Ketorolac 30 Mg/Ml Vial) 15 mg IV NOW ONE Stop: 01/29/22 20:08 Last Admin: 01/29/22 20:14 Dose: 15 mg Documented by: [email or web address] Ondansetron HCl (Ondansetron 4 Mg/2 Ml Inj) 4 mg IV NOW ONE Stop: 01/29/22 19:45 Last Admin: 01/29/22 19:53 Dose: 4 mg Documented by: [email or web address] Tamsulosin HCl (Tamsulosin 0.4 Mg Capsule) 0.4 mg PO NOW ONE Stop: 01/29/22 20:08 Last Admin: 01/29/22 20:14 Dose: 0.4 mg Documented by: [email or web address] Vital Signs Vital signs: Vital Signs - 8 hr 01/29/22 15:18 01/29/22 18:36 01/29/22 18:38 Temperature 97.9 F Pulse Rate 74 70 72 Respiratory Rate 18 Blood Pressure 192/84 H 170/74 H Pulse Oximetry 100 99 99 01/29/22 19:00 01/29/22 19:01 01/29/22 19:30 Temperature Pulse Rate 72 72 65 Respiratory Rate Blood Pressure 150/69 H Pulse Oximetry 99 99 98 01/29/22 20:00 01/29/22 20:25 01/29/22 20:27 Temperature Pulse Rate 61 92 H Respiratory Rate 18 Blood Pressure 140/68 140/68 Pulse Oximetry 97 98 MDM - Abdominal Pain <FELICIA Choudhury - Last Filed: 01/29/22 20:58> Lab Data Result diagrams: 01/29/22 18:52 01/29/22 18:52 Labs: Lab Results 01/29/22 01/29/22 01/29/22 Range/Units 17:00 18:52 18:52 WBC 6.4 (4.5-11.0) X10^3/uL RBC 4.82 (4.0-5.2) X10^6/uL Hgb 13.4 (12.0-16.0) g/dL Hct 39.4 (36-46) % MCV 81.7 (80-100) fL MCH 27.7 (26-34) PG MCHC 33.9 (30-36) % RDW 13.9 (11.6-14.8) % Plt Count 255 (150-400) X10^3/uL Neut % (Auto) 73.7 (50-75) % Lymph % (Auto) 20.4 L (25-40) % [place] % (Auto) 4.7 (3-14) % Eos % (Auto) 0.9 L (2-4) % Baso % (Auto) 0.3 (0-2) % Neut # (Auto) 4700 (3695-8531) /uL Lymph # (Auto) 1300 (7682-2540) /uL [place] # (Auto) 300 (0-900) /uL Eos # (Auto) 100 (0-450) /uL Baso # (Auto) 0 (0-100) /uL Sodium 138 (137-145) mmol/L Potassium 4.0 (3.4-5.1) mmol/L Chloride 103 (98-107) mmol/L Carbon Dioxide 27 (22-32) mmol/L BUN 10 (7-17) mg/dL Creatinine 0.72 (0.52-1.04) mg/dL Estimated GFR > 60 (>60) mL/min BUN/Creatinine Ratio 13.9 (6-22) Glucose 100 (70-100) mg/dL Calcium 8.8 (8.4-10.2) mg/dL Total Bilirubin 0.4 (0.2-1.3) mg/dL AST 17 (14-36) IU/L ALT 11 (<35) IU/L Alkaline Phosphatase 66 (38-126) U/L Total Protein 8.0 (6.3-8.2) g/dL Albumin 4.5 (3.5-5.0) g/dL Globulin 3.5 (1.7-4.1) g/dL Albumin/Globulin Ratio 1.3 (1.0-2.8) Lipase 103 (23-300) U/L Urine RBC 0-1/hpf (0-5/HPF) Urine WBC 0-1/hpf (0-5/HPF) Ur Squamous Epith Cells 0-1 /hpf (0-5/HPF) Urine Bacteria Occasional (0-1) (None) Ur Culture Indicated? Cult not indicated Point of care testing: Point of Care Testing Test Results Negative Urine Dip Bedside Urine Glucose Negative Bedside Urine Bilirubin - Negative Bedside Urine Ketone - Negative Urine Specific [place] 1.015 Bedside Urine Occult Blood + Bedside Urine pH 7.0 Bedside Urine Protein - Negative Bedside Urine Urobilinogen 0.2 Bedside Urine Nitrite - Negative Bedside Urine Leukocytes - Negative Esterase Imaging Data CT scan - abdomen/pelvis: Radiologist's Impression: PROCEDURE:? CT ABDOMEN PELVIS W CON ? INDICATIONS:? sharp rt pelvic pain, no rt ovary or fallopian tube ? TECHNIQUE:? After the administration of intravenous contrast, axial sections acquired from the lung bases to the pubic symphysis.? Coronal and sagittal reformats were performed.? For radiation dose reduction, the following was used:? automated exposure control, adjustment of mA and/or kV according to patient size.? ? COMPARISON:? [facility], CT, CT ABDOMEN PELVIS W CON, 01/20/2021, 14:09.? [facility], CT, CT ABDOMEN PELVIS W CON, 08/25/2020, 23:11. ? FINDINGS:? Image quality:? Excellent.? ? Lung bases:? Minimal bibasilar atelectasis Heart:? No significant findings. ? ABDOMEN: Liver:? Unremarkable Gallbladder:? Unremarkable.? ? Biliary ducts:? Unremarkable.? ? Pancreas:? Unremarkable.? ? Spleen:? Unremarkable.? ? Adrenal Glands:? Unremarkable.? ? Kidneys and Ureters:? Redemonstration of 3 mm nonobstructing inferior pole right nephrolith.? Otherwise, no perinephric stranding.? No hydronephrosis.? Bilateral ureters are normal in course and caliber. ? Stomach and Bowel:? Stomach, small bowel loops, and colon are unremarkable.? Normal appendix. Peritoneum:? No abnormal intraperitoneal fluid.? No free air.? ? Ventral Wall: ? No hernias.? Abdominal Nodes:? No retroperitoneal or mesenteric adenopathy by size criteria.? Vessels:? Aorta and inferior vena cava are normal in size.? ? PELVIS: Pelvic Organs:? Unremarkable.? ? Bladder:? Unremarkable.? ? Pelvic Nodes: No enlarged lymph nodes.? Miscellaneous: No hernias are seen. ? ? ? Bones:? Unremarkable. ? IMPRESSION:? ? CT abdomen and pelvis without acute abnormalities. ? Normal appendix. ? 3 mm nonobstructing right nephrolith.? No evidence for obstructive uropathy. ? ? Dictated by: Giovanny Galvan M.D. on 01/29/2022 at 19:43 ? ? Approved by: Giovanny Galvan M.D. on 01/29/2022 at 19:47 ? MDM Narrative Medical decision making narrative: This is a pleasant 41-year-old female who presents to the emergency department by EMS after she had acute onset of right inguinal pain while she was at school today without any known cause. She states that she felt lightheaded at this time, her pain was very severe, she states she had a bowel movement which was no rmal right after this and did not feel good enough to drive so she came here by ambulance. Abdomen/pelvis CT shows a 3 mm nonobstructing right nephrolith, no evidence of obstructive uropathy. Leukocytosis or left shift, no elevation in her creatinine, it is stable at 0.72, no abnormal findings in her lab work at all, she has an occasional bacteria found in her urine, culture was indicated. She Has not had a history of kidney stones in the past. Encouraged her to stay hydrated, use ibuprofen and Tylenol as needed for pain, she was started on tamsulosin and encouraged to strain her urine for the next few days. She was given Toradol in the emergency department, did not have any allergic reaction, she was given a referral to Urology if she needs to follow up this does not improve in the next 1-2 weeks. She was given a prescription of Zofran if she has any nausea related to this pain, hydrocodone as needed and encouraged her to return to the emergency department for any worsening of her symptoms. No peritoneal signs on abdominal exam. Patient remains p.o. tolerant. Serial abdominal exam without increase in abdominal pain. Given history and exam, low suspicion for acute abdominal process, such as acute cholecystitis, pancreatitis, perforated viscus, atypical appendicitis, colitis, diverticulitis or torsion. Extensive conversation about ER return precautions and need for cl ose follow-up. Patient is appropriate and amenable to discharge home. Vital signs are stable on repeat examination is unremarkable. Patient has been informed of results. Patient has been given strict return to ER precautions for any new or worsening symptoms. Patient understands to follow up closely with outpatient providers as instructed. Patient understands plan and agrees to discharge home. All questions and concerns answered at this time. <Ana Wooten, DO - Last Filed: 01/30/22 20:10> Lab Data Labs: Lab Results 01/29/22 01/29/22 01/29/22 Range/Units 17:00 18:52 18:52 WBC 6.4 (4.5-11.0) X10^3/uL RBC 4.82 (4.0-5.2) X10^6/uL Hgb 13.4 (12.0-16.0) g/dL Hct 39.4 (36-46) % MCV 81.7 (80-100) fL MCH 27.7 (26-34) PG MCHC 33.9 (30-36) % RDW 13.9 (11.6-14.8) % Plt Count 255 (150-400) X10^3/uL Neut % (Auto) 73.7 (50-75) % Lymph % (Auto) 20.4 L (25-40) % [place] % (Auto) 4.7 (3-14) % Eos % (Auto) 0.9 L (2-4) % Baso % (Auto) 0.3 (0-2) % Neut # (Auto) 4700 (4311-5364) /uL Lymph # (Auto) 1300 (6558-8714) /uL [place] # (Auto) 300 (0-900) /uL Eos # (Auto) 100 (0-450) /uL Baso # (Auto) 0 (0-100) /uL Sodium 138 (137-145) mmol/L Potassium 4.0 (3.4-5.1) mmol/L Chloride 103 (98-107) mmol/L Carbon Dioxide 27 (22-32) mmol/L BUN 10 (7-17) mg/dL Creatinine 0.72 (0.52-1.04) mg/dL Estimated GFR > 60 (>60) mL/min BUN/Creatinine Ratio 13.9 (6-22) Glucose 100 (70-100) mg/dL Calcium 8.8 (8.4-10.2) mg/dL Total Bilirubin 0.4 (0.2-1.3) mg/dL AST 17 (14-36) IU/L ALT 11 (<35) IU/L Alkaline Phosphatase 66 (38-126) U/L Total Protein 8.0 (6.3-8.2) g/dL Albumin 4.5 (3.5-5.0) g/dL Globulin 3.5 (1.7-4.1) g/dL Albumin/Globulin Ratio 1.3 (1.0-2.8) Lipase 103 (23-300) U/L Urine RBC 0-1/hpf (0-5/HPF) Urine WBC 0-1/hpf (0-5/HPF) Ur Squamous Epith Cells 0-1 /hpf (0-5/HPF) Urine Bacteria Occasional (0-1) (None) Ur Culture Indicated? Cult not indicated Point of care testing: Point of Care Testing Test Results Negative Urine Dip Bedside Urine Glucose Negative Bedside Urine Bilirubin - Negative Bedside Urine Ketone - Negative Urine Specific [place] 1.015 Bedside Urine Occult Blood + Bedside Urine pH 7.0 Bedside Urine Protein - Negative Bedside Urine Urobilinogen 0.2 Bedside Urine Nitrite - Negative Bedside Urine Leukocytes - Negative Esterase Discharge Plan Departure Patient Disposition: Home Clinical Impression: Nephrolithiasis Instructions: Kidney Stones -- Adult Activity Restrictions/Additional Instructions: *You have been diagnosed with a right-sided kidney stone which is not obstructing the flow of urine from her kidney to your bladder. It does cause a lot of pain like you experience earlier today. This is usually the most painful right before it passes you do not have any swelling to your kidney and no inflammation surrounding the ureters. I encourage you to stay hydrated, take ibuprofen every 6 hours starting tomorrow for pain and inflammation. Tamsulosin which will help dilate your ureters to prevent pain while passing the stone if you do that soon. Please strain your urine so that you know if you have passed it or not. Or do not and see if your pain gets better. If you do not get better after 3-5 days, please schedule follow-up appointment with your primary care provider or return to the emergency department. Please focus on hydration, take ibuprofen as needed for pain, I have sent Zofran for nausea to your [facility] app cy as well. It is okay for you to go to work if you can tolerate your pain and if it is better by tomorrow morning. If you have pain beyond 1-2 weeks, and this kidney stone becomes a problem, please call and make an appointment with Dr. Choe with Urology. *What to do: *Please continue to take your regular medications as directed. [ x] New medication prescriptions sent to your pharmacy: [ [facility]] [ ] New medication written as a paper prescription [ ] No new medications given *Please follow up with your primary care provider in 2-3 days, call for an appointment. Let them know you were seen in the Emergency Department and that we asked that you be seen for follow-up. We will electronically transmit a record of today's note if your PCP is in our system *If you do not have a primary care provider please contact [phone] to establish care with one of the [facility] primary care providers. *Return to Emergency Department if you should have any new, worsening or concerning symptoms, such as [fever greater than 101F, chills, worsening pain, persistent vomiting or other bothersome symptoms] Prescriptions: New tamsulosin 0.4 mg capsule 0.4 mg PO DAILY Qty: 10 0RF ondansetron 4 mg tablet,disintegrating 4 mg PO Q8H PRN (Reason: nausea and vomiting) Qty: 10 0RF hydrocodone-acetaminophen 5-325 mg tablet 1 tab PO BID PRN (Reason: pain) Qty: 14 0RF No Action levothyroxine 50 mcg capsule 50 mcg PO DAILY 0RF fluoxetine 40 mg capsule 40 mg PO DAILY 0RF norethindrone ac-eth estradiol 1-20 mg-mcg tablet 1 tab PO DAILY Qty: 21 4RF diphenhydramine-acetaminophen [Tylenol PM Extra Strength] 25-500 mg Tablet 2 tab PO BEDTIME PRN (Reason: Insomnia) 0RF Referrals: Delgado Choe MD [Physician] - Ning Eng PA-C [Primary Care Provider] - Visit Report Forms: Patient Portal/API <Ana Wooten DO - Last Filed: 01/30/22 20:10> Cosign ED Attending Aarti Attestation: I was immediately available in the department for consultation. Documentation has been reviewed.
[2022-01-29 18:58] LABS: Add Manual Diff / Slide Review NO; Basophils Absolute Auto 0 /uL (0-100); Basophils Percent Auto 0.3 % (0-2); Eosinophils Absolute Auto 100 /uL (0-450); Eosinophils Percent Auto 0.9 % (2-4); Hematocrit 39.4 % (36-46); Hemoglobin 13.4 g/dL (12.0-16.0); Lymphocytes Absolute Auto 1300 /uL (1100-4500); Lymphocytes Percent Auto 20.4 % (25-40); Mean Corpuscular HGB Conc 33.9 % (30-36); Mean Corpuscular Hemoglobin 27.7 PG (26-34); Mean Corpuscular Volume 81.7 fL (80-100); Monocytes Absolute Auto 300 /uL (0-900); Monocytes Percent Auto 4.7 % (3-14); Neutrophils Absolute Auto 4700 /uL (1500-7000); Neutrophils Percent Auto 73.7 % (50-75); Platelet Count 255 X10^3/uL (150-400); Red Blood Cell Count 4.82 X10^6/uL (4.0-5.2); Red Cell Distribution Width 13.9 % (11.6-14.8); White Blood Cell Count 6.4 X10^3/uL (4.5-11.0)
[2022-01-29 19:13] LABS: Alanine Aminotransferase 11 IU/L (<35); Albumin 4.5 g/dL (3.5-5.0); Albumin Globulin Ratio 1.3 (1.0-2.8); Alkaline Phosphatase 66 U/L (38-126); Aspartate Aminotransferase 17 IU/L (14-36); BUN Creatinine Ratio 13.9 (6-22); Bilirubin Total 0.4 mg/dL (0.2-1.3); Blood Urea Nitrogen 10 mg/dL (7-17); Calcium 8.8 mg/dL (8.4-10.2); Carbon Dioxide 27 mmol/L (22-32); Chloride 103 mmol/L (98-107); Estimated Glomerular Filt Rate > 60 mL/min (>60); Globulin 3.5 g/dL (1.7-4.1); Glucose 100 mg/dL (70-100); HEMOLYSIS < 15 (0-50); Lipase 103 U/L (23-300); Sodium 138 mmol/L (137-145)
[2022-01-29] MEDS: HYDROCODONE/ACET 5/325 TABLET 1 TAB PO (19:53)
[2022-01-29] MEDS: ONDANSETRON 4 MG/2 ML INJ IV (19:53)
[2022-01-29] MEDS: KETOROLAC 30 MG/ML VIAL 15 MG IV (20:14)
[2022-01-29] MEDS: TAMSULOSIN 0.4 MG CAPSULE PO (20:14)
== END 2022-01-29 20:28 | disposition home or self-care (01) ==
PROVIDERS: Emergency Medicine; Emergency Provider Nurse Practitioner Critical Care Medicine; PCP Physician Assistant Medical
DX: N20.0 Calculus of kidney (principal)
CPT/HCPCS: 36415; 74177; 80053; 81003; 81015; 81025; 83690; 85025; 96374; 96375; 99284; J1885; J2405; Q9967

== ENCOUNTER 2022-06-15 14:48 | Emergency (ER) | payer OTHER, SELFPAY ==
[2022-06-15 14:54] VITALS: BP 175/81; PULSE 77; RESP 18; TEMP 36.9; O2SAT 96
--- NOTE | 2022-06-15 14:57 | DI.RAD.S_ITS ---
PROCEDURE: XR WRIST LT MIN 3V INDICATIONS: fall TECHNIQUE: 4 views of the wrist were acquired. COMPARISON: None. FINDINGS: Bones: No acute fracture or dislocation. Scaphoid view: Unremarkable Soft tissues: No suspicious soft tissue calcifications. IMPRESSION: No acute radiographic abnormality. If there is high concern for occult injury, consider repeat radiography or cross-sectional imaging. Dictated by: Sony Norwood M.D. on 06/15/2022 at 15:38 Approved by: Sony Norwood M.D. on 06/15/2022 at 15:39
--- NOTE | 2022-06-15 14:57 | DI.RAD.S_ITS ---
PROCEDURE: XR FINGER LT MIN 2V INDICATIONS: fall TECHNIQUE: AP hand, 2 views of the 1st finger(s) acquired. COMPARISON: None. FINDINGS: Bones: No displaced fracture. No dislocation. Soft tissues: No suspicious calcifications. IMPRESSION: No acute radiographic abnormality. If there is high concern for occult injury, consider repeat radiography or cross-sectional imaging. Dictated by: Sony Norwood M.D. on 06/15/2022 at 15:39 Approved by: Sony Norwood M.D. on 06/15/2022 at 15:40
--- NOTE | 2022-06-15 19:16 | ED.UPPEXIN ---
HPI - Extremity Injury (Upper) <Israel Ruiz PA-C - Last Filed: 06/15/22 19:27> General Chief Complaint: Extremity Injury, Upper Stated Complaint: Left thumb injury Time Seen by Provider: 06/15/22 18:32 Source: patient Mode of arrival: Ambulatory History of Present Illness HPI narrative: Patient is a 42 female who presents to emergency room today with complaint of left thumb pain that occurred after she fell out of an office chair onto her left thumb. States it happened earlier today she has pain and swelling to the left thumb. Denies any other concerns Related Data Home Medications Medication Instructions Recorded Confirmed diphenhydramine 25 2 tab PO BEDTIME PRN Insomnia 10/04/20 10/04/20 mg-acetaminophen 500 mg tablet (Tylenol PM Extra Strength) fluoxetine 40 mg capsule 40 mg PO DAILY 12/02/21 12/02/21 levothyroxine 50 mcg capsule 50 mcg PO DAILY 12/02/21 12/02/21 Previous Rx's Medication Instructions Recorded hydrocodone 5 mg-acetaminophen 325 1 tab PO BID PRN pain #14 tabs 01/29/22 mg tablet ondansetron 4 mg disintegrating 4 mg PO Q8H PRN nausea and 01/29/22 tablet vomiting #10 tabs tamsulosin 0.4 mg capsule 0.4 mg PO DAILY #10 caps 01/29/22 norethindrone acetate 1 mg-ethinyl See Rx Instructions .Route 04/18/22 estradiol 20 mcg tablet .COMPLEX #21 tabs (Microgestin) Allergies Allergy/AdvReac Type Severity Reaction Status Date / Time naproxen Allergy Mild VOMITING, Verified 12/02/21 08:51 PATIENT STATES SHE CAN TAKE IBUPROFEN Review of Systems <Israel Ruiz PA-C - Last Filed: 06/15/22 19:27> Review of Systems Narrative: R.O.S.: General: No fever, chills or fatigue. Cardiovascular: No chest pain or palpitations Respiratory: No S.O.B. HEENT: No congestion, ear pain, rhinorrhea, sore throat or tinnitus Gastrointestinal: No nausea or vomiting : No urinary concerns Skin: No rash or associated abnormalities Musculoskeletal: Left thumb pain. Neurological: Awake, alert and in not apparent distress. No Headaches, changes in vision or other related neurological concerns. Patient History <Israel Ruiz PA-C - Last Filed: 06/15/22 19:27> Medical History Depression (~1998) Human papilloma virus (~2000) Surgical History Anesthesia History of tubal ligation (~10/2017) Family History Father Diabetes mellitus Hypertension Grandmother Liver cancer Grandfather Diabetes mellitus Grandmother Diabetes mellitus Social History household members: spouse Smoking Status: Never smoker alcohol intake: current Smoking Status: Never smoker alcohol intake frequency: holidays/special occasions only Substance Use Type: does not use Exam <Israel Ruiz PA-C - Last Filed: 06/15/22 19:27> Narrative Exam Narrative: Physical Exam: ? General: normal appearance, well developed, well nourished, alert, and awake. Not in acute distress. ? Head: Normocephalic, no lesions. Chest: Lungs CTAB, no rales, rhonchi or wheezes. ?? Heart: RRR, no murmurs, rubs or gallops. Eyes: PERRLA, EOM's full, conjunctivae clear. ? Neuro: Physiological, no localizing findings, CN3-12 intact. ?? Extremities: Patient left thumb has pain to palpation on the dorsal proximal and distal metacarpal areas. Left hand is weak per patient complaint of pain in the thumb area. Left hand otherwise intact your neuro and motor responses of the radial median and ulnar nerves. ? Skin: Normal, no rashes, no lesions noted. ?? PSYCHIATRIC: The mood is good, no blunted affect. Speech is clear. Thought process is linear, thought content is appropriate. The voice is without significant inflection. Gastrointestinal: Soft; NT; ND; Pos BS with Neg. rebound tenderness. No scars or major deformities noted on Visual Inspection. Initial Vital Signs Initial Vital Signs: Vital Signs Temperature 98.5 F 06/15/22 14:54 Pulse Rate 77 06/15/22 14:54 Respiratory Rate 18 06/15/22 14:54 Blood Pressure 175/81 H 06/15/22 14:54 Pulse Oximetry 96 06/15/22 14:54 Oxygen Delivery Method 06/15/22 14:54 <DO Eric Valadez Last Filed: 06/16/22 07:11> Initial Vital Signs Initial Vital Signs: Vital Signs Temperature 98.5 F 06/15/22 14:54 Pulse Rate 77 06/15/22 14:54 Respiratory Rate 18 06/15/22 14:54 Blood Pressure 175/81 H 06/15/22 14:54 Pulse Oximetry 96 06/15/22 14:54 Oxygen Delivery Method 06/15/22 14:54 Course <Israel Ruiz PA-C - Last Filed: 06/15/22 19:27> Orders Ordered: ED Orders 06/15/22 14:57 XR finger LT min 2V Stat XR wrist LT min 3V Stat Vital Signs Vital signs: Vital Signs - 8 hr 06/15/22 14:54 Temperature 98.5 F Pulse Rate 77 Respiratory Rate 18 Blood Pressure 175/81 H Pulse Oximetry 96 Oxygen Delivery Method Room Air <DO Eric Valadez Last Filed: 06/16/22 07:11> Orders Ordered: ED Orders 06/15/22 14:57 XR finger LT min 2V Stat XR wrist LT min 3V Stat Vital Signs Vital signs: Vital Signs - 8 hr 06/15/22 14:54 Temperature 98.5 F Pulse Rate 77 Respiratory Rate 18 Blood Pressure 175/81 H Pulse Oximetry 96 Oxygen Delivery Method Room Air MDM - Extremity Injury (Upper) <LILLY Kang Last Filed: 06/15/22 19:27> Imaging Data Extremity x-ray #1: Radiologist's Impression: [address] [address] XRay Report Signed Patient: Pati Mercado MR#: [id number] : 1980 Acct:[id number] Age/Sex: 42 / F Date of Service: 06/15/22 Loc: ED Accession Number: [id number] ?? Procedure: XR finger LT min 2V Ordering Provider: Ana Wooten D.O. PROCEDURE:? XR FINGER LT MIN 2V ? INDICATIONS:? fall ? TECHNIQUE:? AP hand, 2 views of the 1st finger(s) acquired.? ? COMPARISON:? None. ? FINDINGS:? ? Bones:? No displaced fracture.? No dislocation. ? Soft tissues:? No suspicious calcifications. ? IMPRESSION:? No acute radiographic abnormality.? If there is high concern for occult injury, consider repeat radiography or cross-sectional imaging. ? ? Dictated by: Sony Norwood M.D. on 06/15/2022 at 15:39 ? ? Approved by: Sony Norwood M.D. on 06/15/2022 at 15:40 ? Extremity x-ray #2: Radiologist's Impression: [address] [address] XRay Report Signed Patient: Pati Mercado MR#: [id number] : 1980 Acct:[id number] Age/Sex: 42 / F Date of Service: 06/15/22 Loc: ED Accession Number: [id number] ?? Procedure: XR wrist LT min 3V Ordering Provider: Ana Wooten D.O. PROCEDURE:? XR WRIST LT MIN 3V ? INDICATIONS: fall ? TECHNIQUE:? 4 views of the wrist were acquired.? ? COMPARISON:? None. ? FINDINGS:? ? Bones:? No acute fracture or dislocation. ? Scaphoid view:? Unremarkable ? Soft tissues:? No suspicious soft tissue calcifications.? ? IMPRESSION:? No acute radiographic abnormality.? If there is high concern for occult injury, consider repeat radiography or cross-sectional imaging. ? ? Dictated by: Sony Norwood M.D. on 06/15/2022 at 15:38 ? ? Approved by: Sony Norwood M.D. on 06/15/2022 at 15:39 ? MDM Narrative Medical decision making narrative: Patient has complaint of left thumb pain after falling on her left thumb x-rays from the wrist were negative thumb spica placed outpatient mobilize thumb while she works. Patient advised to take [id number] nonsteroidal anti-inflammatories for pain to avoid overuse activity using the left thumb to emergency room if any emergent concerns arise. Discharge Plan Departure Patient Disposition: Home Clinical Impression: Left thumb sprain, Left wrist sprain Instructions: DI for Wrist Sprain, DI for Finger Sprain Activity Restrictions/Additional Instructions: *You have been diagnosed with a sprain of the left thumb and left wrist. I ordered a splint to help support your left thumb while at work. I suggested refrain from any strenuous overuse activities using your left thumb and wrist the next 2-3 weeks. Also suggest you take [id number] nonsteroidal anti-inflammatories to help with the pain. He is return the emergency room if any emergent concerns arise. [ ] *What to do: *Please continue to take your regular medications as directed. [ ] New medication prescriptions sent to your pharmacy: [ ] [ ] New medication written as a paper prescription [x] No new medications given *Please follow up with your primary care provider in 2-3 days, call for an appointment. Let them know you were seen in the Emergency Department and that we ask that you be seen in follow up. We will electronically transmit a record of today's note if your PCP is in our system *If you do not have a primary care provider please contact the [facility] Resource line at [phone]. They will ask some questions about your medical history and help get you set up with a doctor in the community. *Return to Emergency Department if you should have any new, worsening or concerning symptoms, such as [fever greater than 101 F, shaking chills, worsening pain, persistent vomiting or other bothersome symptoms] Prescriptions: No Action norethindrone ac-eth estradiol [Microgestin 09/19 ()] 1-20 mg-mcg tablet See Rx Instructions .ROUTE .COMPLEX Qty: 21 4RF Dose Instruction: TAKE 1 TABLET BY MOUTH ONCE DAILY FOR HEAVY BLEEDING Rx Instructions: TAKE 1 TABLET BY MOUTH ONCE DAILY FOR HEAVY BLEEDING levothyroxine 50 mcg capsule 50 mcg PO DAILY fluoxetine 40 mg capsule 40 mg PO DAILY diphenhydramine-acetaminophen [Tylenol PM Extra Strength] 25-500 mg Tablet 2 tab PO BEDTIME PRN (Reason: Insomnia) tamsulosin 0.4 mg capsule 0.4 mg PO DAILY Qty: 10 0RF ondansetron 4 mg tablet,disintegrating 4 mg PO Q8H PRN (Reason: nausea and vomiting) Qty: 10 0RF hydrocodone-acetaminophen 5-325 mg tablet 1 tab PO BID PRN (Reason: pain) Qty: 14 0RF Referrals: Ning Eng PA-C [Primary Care Provider] - Visit Report Forms: Patient Portal/API <Ana Wooten DO - Last Filed: 06/16/22 07:11> Cosign ED Attending Cosignature Attestation: I was immediately available in the department for consultation. Documentation has been reviewed.
== END 2022-06-15 19:36 | disposition home or self-care (01) ==
PROVIDERS: Emergency Provider Physician Assistant; PCP Physician Assistant Medical
DX: S63.602A Unspecified sprain of left thumb, initial encounter (principal); S63.502A Unspecified sprain of left wrist, initial encounter; W07.XXXA Fall from chair, initial encounter
CPT/HCPCS: 73110; 73140; 99282; 99283

== ENCOUNTER → 2022-08-04 13:46 | Outpatient (CLI) | payer OTHER, SELFPAY ==
--- NOTE | 2022-08-04 13:47 | DI.RAD.S_ITS ---
PROCEDURE: XR FINGER LT MIN 2V INDICATIONS: Continued thumb pain TECHNIQUE: AP hand, 2 views of the 1st finger(s) acquired. COMPARISON: [facility], CR, XR WRIST LT MIN 3V, 06/15/2022, 15:00. [facility], CR, XR FINGER LT MIN 2V, 06/15/2022, 15:00. FINDINGS: Bones: No fractures or dislocations. No suspicious bony lesions. Mild degenerative joint disease at the 1st metacarpophalangeal joint. Soft tissues: No suspicious soft tissue calcifications. IMPRESSION: 1. Mild degenerative joint disease. If clinical symptoms persist or clinical suspicion for tendon or ligamentous abnormality is high, MRI may be obtained for further evaluation. Dictated by: Leydi Patrick M.D. on 08/05/2022 at 15:43 Approved by: Leydi Patrick M.D. on 08/05/2022 at 15:45
== END ==
PROVIDERS: PCP Physician Assistant Medical; Referring Provider Nurse Practitioner Family; Visit Provider Nurse Practitioner Family
DX: S63.602A Unspecified sprain of left thumb, initial encounter (principal); M19.042 Primary osteoarthritis, left hand; X58.XXXA Exposure to other specified factors, initial encounter
CPT/HCPCS: 73140

== ENCOUNTER → 2022-10-01 10:47 | Outpatient (CLI) | payer OTHER, SELFPAY ==
[2022-10-01 12:47] LABS: Add Manual Diff / Slide Review NO; Basophils Absolute Auto 0 /uL (0-100); Basophils Percent Auto 0.3 % (0-2); Eosinophils Absolute Auto 100 /uL (0-450); Eosinophils Percent Auto 3.2 % (2-4); Hematocrit 40.5 % (36-46); Hemoglobin 13.4 g/dL (12.0-16.0); Lymphocytes Absolute Auto 1200 /uL (1100-4500); Mean Corpuscular Hemoglobin 27.5 PG (26-34); Mean Corpuscular Volume 83.4 fL (80-100); Monocytes Absolute Auto 200 /uL (0-900); Monocytes Percent Auto 4.6 % (3-14); Neutrophils Absolute Auto 3000 /uL (1500-7000); Neutrophils Percent Auto 65.9 % (50-75); Platelet Count 299 X10^3/uL (150-400); Red Blood Cell Count 4.85 X10^6/uL (4.0-5.2); Red Cell Distribution Width 13.3 % (11.6-14.8); White Blood Cell Count 4.6 X10^3/uL (4.5-11.0)
[2022-10-01 13:02] LABS: Hemoglobin A1C% w Est Avg Glu 5.6 % (4.0-6.0)
[2022-10-01 13:09] LABS: Erythrocyte Sedimentation Rate 15 MM/HR (0-20)
[2022-10-01 13:16] LABS: Alanine Aminotransferase 13 IU/L (<35); Albumin 3.9 g/dL (3.5-5.0); Albumin Globulin Ratio 1.2 (1.0-2.8); Alkaline Phosphatase 58 U/L (38-126); Aspartate Aminotransferase 17 IU/L (14-36); Bilirubin Total 0.3 mg/dL (0.2-1.3); Blood Urea Nitrogen 15 mg/dL (7-17); Calcium 8.6 mg/dL (8.4-10.2); Carbon Dioxide 32 mmol/L (22-32); Chloride 100 mmol/L (98-107); Estimated Glomerular Filt Rate > 60 mL/min (>60); Globulin 3.3 g/dL (1.7-4.1); Glucose 84 mg/dL (70-100); HEMOLYSIS < 15 (0-50); Sodium 138 mmol/L (137-145); Total Protein 7.2 g/dL (6.3-8.2)
== END ==
PROVIDERS: PCP Physician Assistant Medical; Referring Provider Orthopaedic Surgery Foot and Ankle Surgery; Visit Provider Orthopaedic Surgery Foot and Ankle Surgery
DX: Z01.812 Encounter for preprocedural laboratory examination (principal); R73.9 Hyperglycemia, unspecified
CPT/HCPCS: 36415; 80053; 83036; 85025; 85651

== ENCOUNTER → 2022-10-01 18:08 | Outpatient (CLI) | payer OTHER, SELFPAY ==
--- NOTE | 2022-10-01 18:10 | DI.MRI.S_ITS ---
PROCEDURE: MR FOOT RT WO/W CON INDICATIONS: RIGHT FOOT ULCER TECHNIQUE: Noncontrast sagittal T1 spin echo and T2 fast spin echo with fat saturation, long-axis T1 spin echo and STIR; short-axis T1 spin echo with and without fat saturation, and T2 fast spin echo with fat saturation through the forefoot. Post-contrast short axis, long axis, and sagittal T1 spin echo with fat saturation through the forefoot. COMPARISON: [facility], CR, XR FOOT 3 VIEWS WEIGHT BEARING RIGHT, 10/01/2022, 9:38. FINDINGS: Image quality: Excellent. Bones and joints: No suspicious osseous enhancement. No bone marrow contusions or metatarsal stress fractures. Mild hallux valgus. Degenerative changes are seen at the 1st metatarsophalangeal joint. Cystic changes and mild enhancement are seen at the medial 1st metatarsal head. Mild lateral subluxation of the hallux sesamoids. Metatarsal sesamoid degenerative changes are present. No intraosseous lesions. Soft tissues: Soft tissue ulceration is seen at the plantar medial aspect of the midfoot. Surrounding soft tissue edema and enhancement are seen. No focal nonenhancing fluid collection is seen. The ulcer extends to the depth of the plantar fascia without involvement of the plantar foot musculature. The visualized plantar foot muscles demonstrate bulk. Visualized flexor and extensor tendons appear intact, without tenosynovitis. The distal insertions of the peroneus brevis and longus tendons appear intact. The principal Lisfranc ligament appears intact. Sagittal images demonstrate no evidence for plantar plate tears. IMPRESSION: 1. Soft tissue ulceration at the plantar medial aspect of the forefoot with surrounding soft tissue edema. No focal fluid collection or abscess. No involvement of the plantar foot musculature is seen. No signs of osteomyelitis. 2. Hallux valgus and mild to moderate degenerative changes at the 1st metatarsophalangeal joint. Mild lateral subluxation of the hallux sesamoids and metatarsal sesamoid degenerative changes. Approved by: Audie Thapa M.D. on 10/02/2022 at 9:37
== END ==
PROVIDERS: PCP Physician Assistant Medical; Referring Provider Orthopaedic Surgery Foot and Ankle Surgery; Visit Provider Orthopaedic Surgery Foot and Ankle Surgery
DX: L97.511 Non-pressure chronic ulcer of other part of right foot limited to breakdown of skin (principal); Z01.812 Encounter for preprocedural laboratory examination; S93.331A Other subluxation of right foot, initial encounter; M20.11 Hallux valgus (acquired), right foot; R73.9 Hyperglycemia, unspecified
CPT/HCPCS: 36415; 73720; 80053; 83036; 85025; 85651; A9579

== ENCOUNTER → 2023-09-22 17:58 | Outpatient (CLI) | payer OTHER, SELFPAY ==
--- NOTE | 2023-09-22 18:04 | DI.RAD.S_ITS ---
PROCEDURE: XR HAND RT MIN 3V INDICATIONS: Right-hand contusion TECHNIQUE: 3 views of the hand(s) acquired. COMPARISON: None. FINDINGS: Bones: Subtle radiolucency involving 3rd distal phalangeal tuft is seen, a nondisplaced fracture cannot be excluded suggest clinical correlation. No other fracture or dislocation. Carpal bones are normally aligned. No bony erosive changes. No suspicious bony lesions. Soft tissues: No suspicious soft tissue calcifications. IMPRESSION: Finding may represent a subtle nondisplaced fracture through 3rd distal phalangeal tuft suggest clinical correlation for focal pain in this area. No other fracture or dislocation. No gross soft tissue abnormalities. Dictated by: Mac Darby M.D. on 09/23/2023 at 11:59 Approved by: Mac Darby M.D. on 09/23/2023 at 12:04
== END ==
PROVIDERS: PCP Physician Assistant Medical; Referring Provider Nurse Practitioner Family; Visit Provider Nurse Practitioner Family
DX: S60.221A Contusion of right hand, initial encounter (principal); X58.XXXA Exposure to other specified factors, initial encounter
CPT/HCPCS: 73130